=== PATIENT | female | born 1960 | race Caucasian/White ===

== ENCOUNTER 2016-12-01 17:21 | Emergency (ER) | payer OTHER ==
[~2016-12-01] VITALS: Ht 157.5 cm; Wt 57.6 kg
[2016-12-01] MEDS ORDERED: CEPHALEXIN500 MG ORAL (18:26)
--- NOTE | 2016-12-01 18:26 | Emergency Room Report ---
History of Present Illness General Chief Complaint: Laceration Source: Patient Present Illness HPI 56-year-old female presents to the emergency department complaining of laceration to the left third finger times one hour. Patient states that she was cutting sweet potatoes at home and actually cut her finger. Patient denies taking blood thinning medications, she reports she is up-to-date with tetanus vaccination. Patient states bleeding has subsided at this time. Denies numbness tingling or loss of sensation or gross motor movements of the extremities, incontinence of bowel or bladder. Denies CP, Palpitations, LOC, AMS , dizziness, Changes in Vision, Sensation, paresthesias, or a sudden severe headache. Allergies: Coded Allergies: SULFA (SULFONAMIDE ANTIBIOTICS) (Verified Allergy, Intermediate, Hives, 12/01/16) Patient History Past Medical History: see triage record Past Surgical History: none Pertinent Family History: none Now: No Immunizations: UTD Reviewed Nursing Documentation: PMH: Agreed, PSxH: Agreed Nursing Documentation-PMH Past Medical History: No Stated History Review of Systems All Other Systems: negative except mentioned in HPI Physical Exam Vital Signs Date Time Temp Pulse Resp B/P Pulse Ox O2 Delivery O2 Flow Rate FiO2 12/01/16 17:31 97.9 74 18 166/80 98 Room Air Sp02 EP Interpretation: reviewed, normal General Appearance: no apparent distress, alert, GCS 15, non-toxic Head: normocephalic, atraumatic Eyes: bilateral eye PERRL, bilateral eye normal inspection ENT: hearing grossly normal, normal pharynx, no angioedema, normal voice Neck: full range of motion, supple/symm/no masses Respiratory: lungs clear, normal breath sounds, speaking full sentences Cardiovascular #1: regular rate, rhythm, no edema Musculoskeletal: back normal, gait/station normal, normal range of motion, non- tender Neurologic: alert, oriented x3, responsive, motor strength/tone normal, sensory intact, speech normal Psychiatric: judgement/insight normal, memory normal, mood/affect normal Skin: normal color, no rash, warm/dry, well hydrated, laceration - 0.6 cm superficial flap laceration to the medial left 3rd finger. no obvious fb, skin is still mostly intact. no bleeding at this time. Lymphatic: no adenopathy Procedures Laceration/Wound Repair Laceration/Wound Repair : Consent: Verbal Wound Location: upper extremity - left third digit Wound's Depth, Shape: superficial, flap Wound Length (cm): 0 Wound Explored: clean Irrigated w/ Saline (ccs): 200 Wound Repaired With: Dermabond Layer Closure?: No Sterile Dressing Applied?: Yes Splint Applied?: Yes Type of Splint Applied: finger splint Sling Applied?: No Patient Tolerated: Well Complications: None Medical Decision Making PA Attestation Dr. Torres is my supervising Physician whom patient management has been discussed with. Diagnostic Impression: Primary Impression: Laceration ER Course 56-year-old female presents to the emergency department complaining of laceration to the left third finger times one hour. Patient states that she was cutting sweet potatoes at home and actually cut her finger. Patient denies taking blood thinning medications, she reports she is up-to-date with tetanus vaccination. Patient states bleeding has subsided at this time. Denies numbness tingling or loss of sensation or gross motor movements of the extremities, incontinence of bowel or bladder. Denies CP, Palpitations, LOC, AMS , dizziness, Changes in Vision, Sensation, paresthesias, or a sudden severe headache. Ddx considered but are not limited to laceration, tendon injury, cellulitis, amputation Vital signs: are WNL, pt. is afebrile H&PE are most consistent with: superficial flap laceration of the medial left 3rd digit approx 0.6 cm in length ORDERS: none required at this time, the diagnosis is clinical ED INTERVENTIONS: - The wound was copiously irrigated with normal saline, and explored for foreign body for which no FB was found. - The wound was approximated and closed using derma-jain Discussed with patient: That we make every effort to approximate the laceration as best as we can so that scarring will be as cosmetically pleasing as possible with our limited cosmetic skill set in the Emergency dept. Regardless of our best efforts there will be scarring after laceration repair. The extent of scarring is unknown at this time. -Finger Splint applied by senior mechanical technician. Pt. remains neurovascularly intact. DISCHARGE: At this time pt. is stable for d/c to home. Will provide printed patient care instructions, and any necessary prescriptions. Care plan and follow up instructions have been discussed with the patient prior to discharge. Last Vital Signs Date Time Temp Pulse Resp B/P Pulse Ox O2 Delivery O2 Flow Rate FiO2 12/01/16 17:31 97.9 74 18 166/80 98 Room Air Disposition: HOME, SELF-CARE Condition: Stable Scripts Cephalexin* (KEFLEX*) 500 Mg Capsule 500 MG ORAL EVERY 12 HOURS for 7 Days, #14 CAP 0 Refills Prov: Anca Monroy 12/01/16 Referrals: NON PHYSICIAN (PCP) Departure Forms: Return to Work Return to Work Date: Dec 03, 2016 Work Restrictions: No Heavy Lifting Other Restrictions: light duty, limited use of left hand x 1 week. Return to Full Activity: Dec 10, 2016 Patient Instructions: Nonsutured Laceration Care Additional Instructions: Take medications as directed. Follow up with a Primary Care Provider in 3-5 days, even if your symptoms have resolved. --Please review list of primary care clinics, if you do not already have a primary care provider Return sooner to ED if new symptoms occur, or current symptoms become worse. - Please note that this Emergency Department Report was dictated using Endoventionbilingual administrative assistant technology software, occasionally this can lead to erroneous entry secondary to interpretation by the dictation equipment. Anca Monroy Dec 01, 2016 18:26
[2016-12-01 18:44] VITALS: BP 150/72
== END 2016-12-01 18:46 | disposition home or self-care (01) ==
LOC: EMR 18:15
DX: S61.213A Laceration without foreign body of left middle finger without damage to nail, initial encounter (principal); W26.0XXA Contact with knife, initial encounter; Y92.019 Unspecified place in single-family (private) house as the place of occurrence of the external cause; Z88.2 Allergy status to sulfonamides

== ENCOUNTER 2017-02-10 16:54 | Emergency (ER) | payer OTHER ==
[~2017-02-10] VITALS: Ht 157.5 cm; Wt 57.6 kg
[~2017-02-10 16:54] MED LIST: CEPHALEXIN500 MG ORAL
[2017-02-10] MEDS: Methocarbamol 750mg tab ORAL ONE ×2 (17:18→17:20)
[2017-02-10] MEDS ORDERED: IBUPROFEN600 MG ORAL (18:22)
[2017-02-10] MEDS ORDERED: ROBAXIN-750750 MG PO (18:22)
[2017-02-10 18:30] VITALS: BP 134/88
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
--- NOTE | 2017-02-11 09:38 | Diagnostic Imaging Report ---
Indication: PAIN Comparison: none Findings: 3 views of the right knee show no acute fractures or dislocations. Bony mineralization is normal. No bony destructive lesions are identified. There is no suprapatellar effusion. Soft tissues are unremarkable. Impression: Negative right knee series
--- NOTE | 2017-02-11 09:41 | Diagnostic Imaging Report ---
Indication: PAIN Comparison: None Findings: AP, lateral and coned down views of the lumbar spine shows normal alignment. There are no acute fractures or subluxations. Intervertebral disc spaces are intact. There is mild disc space narrowing noted at L5-S1 consistent with mild degenerative changes. Bony mineralization is normal. Impression: No acute fractures or subluxations. Mild degenerative disc disease at L5-S1 Mild aortic calcifications
== END 2017-02-10 18:30 | disposition home or self-care (01) ==
LOC: EMR 18:05
DX: S39.012A Strain of muscle, fascia and tendon of lower back, initial encounter (principal); V43.52XA Car driver injured in collision with other type car in traffic accident, initial encounter; Y92.410 Unspecified street and highway as the place of occurrence of the external cause; M25.561 Pain in right knee; Z88.2 Allergy status to sulfonamides; M51.37 Other intervertebral disc degeneration, lumbosacral region
CPT/HCPCS: 72020; 99284

== ENCOUNTER 2017-12-05 08:27 | Inpatient (IN) | payer OTHER ==
[~2017-12-05] VITALS: Ht 158.8 cm; Wt 58.5 kg
[~2017-12-05 08:27] MED LIST changes: +IBUPROFEN600 MG ORAL; +ROBAXIN-750750 MG PO
[2017-12-05] MEDS ORDERED: NKM (08:39)
[2017-12-05 09:00] VITALS: BP 130/67
[2017-12-05 09:02] LABS: BASOPHILS % (AUTO) 1.4 % (0.0-2.0); HEMOGLOBIN 14.4 G/DL (12.0-16.0); LYMPHOCYTES % (AUTO) 33.2 % (20.0-45.0); MEAN CORPUSCULAR VOLUME 90 FL (80-99); MONOCYTES % (AUTO) 11.1 % (1.0-10.0); NEUTROPHILS % (AUTO) 53.2 % (45.0-75.0); PLATELET COUNT 338 K/UL (150-450); RED BLOOD COUNT 4.78 M/UL (4.20-5.40)
--- NOTE | 2017-12-05 09:06 | Emergency Room Report ---
History of Present Illness General Chief Complaint: Chest Pain Source: Patient Present Illness HPI This patient states that about 1:30 this morning she woke up with chest pain. She states that the sensation feels like she swallowed a hard candy and it stuck. She states that in the middle of her chest. She states that she thought possibly was indigestion so she took 2 Tums. She states that the symptoms continued so she took 2 baby aspirin as a precaution. She states that the symptoms continue. She does not have any cardiac history. She denies history of tobacco, alcohol or drug use. She does not have a history of asthma or other lung conditions. She does have a history of acid reflux and had been on PPI medications prior to the past few months. She underwent an endoscopy and had a normal endoscopy so she was removed from being on PPI medications. She denies abdominal pain. She denies nausea or vomiting. She denies fever or chills. She denies cough or congestion. She does admit that dinner last night was 2 [employer] and a boba tea. She has no other complaints. Allergies: Coded Allergies: SULFA (SULFONAMIDE ANTIBIOTICS) (Verified Allergy, Intermediate, Hives, 12/01/16) Patient History Past Medical History: see triage record, GERD, renal disease - Renal stenosis with angioplasty. Social History: Denies: smoking, alcohol use, drug use Last Menstrual Period: menopause Reviewed Nursing Documentation: PMH: Agreed; PSxH: Agreed Review of Systems All Other Systems: negative except mentioned in HPI Physical Exam Vital Signs Date Time Temp Pulse Resp B/P (MAP) Pulse Ox O2 Delivery O2 Flow Rate FiO2 12/05/17 08:30 98.1 82 18 148/83 100 Room Air 98.1 Sp02 EP Interpretation: reviewed, normal General Appearance: no apparent distress, alert, GCS 15, non-toxic Head: normocephalic, atraumatic Eyes: bilateral eye normal inspection, bilateral eye PERRL ENT: hearing grossly normal, normal pharynx, no angioedema, normal voice Neck: full range of motion, supple/symm/no masses Respiratory: chest non-tender, lungs clear, normal breath sounds, no respiratory distress, no retraction, no accessory muscle use, speaking full sentences Cardiovascular #1: regular rate, rhythm, no edema Gastrointestinal: normal bowel sounds, non tender, soft, non-distended, no guarding, no rebound Rectal: deferred Musculoskeletal: back normal, gait/station normal, normal range of motion, non- tender Neurologic: alert, oriented x3, responsive, motor strength/tone normal, sensory intact, speech normal Psychiatric: judgement/insight normal, memory normal, mood/affect normal, no suicidal/homicidal ideation Skin: normal color, no rash, warm/dry, well hydrated Medical Decision Making Diagnostic Impression: Primary Impression: Chest pain ER Course This patient presented with chest pain. She is low risk, however, she had no relief with treatment for acid reflux and esophagitis here in the emergency department. She continued to have pain. She does have a history of renal artery stenosis an aneurysm, so I felt that I could not discharges patient home without further workup as an inpatient. This would include evaluation for acute coronary syndrome to include unstable angina and further evaluation of the patient's aorta. I will order a CTA of this patient's chest. This will be pending at the time of this dictation. If there is any abnormality an addendum will be added to this chart. The patient will be admitted for further evaluation and monitoring of her persistent chest pain. Laboratory Tests Test 12/05/17 08:49 12/05/17 09:40 White Blood Count 7.0 K/UL (4.8-10.8) Red Blood Count 4.78 M/UL (4.20-5.40) Hemoglobin 14.4 G/DL (12.0-16.0) Hematocrit 43.0 % (37.0-47.0) Mean Corpuscular Volume 90 FL (80-99) Mean Corpuscular Hemoglobin 30.1 PG (27.0-31.0) Mean Corpuscular Hemoglobin Concent 33.4 G/DL (32.0-36.0) Red Cell Distribution Width 11.0 % (11.6-14.8) L Platelet Count 338 K/UL (150-450) Mean Platelet Volume 7.2 FL (6.5-10.1) Neutrophils (%) (Auto) 53.2 % (45.0-75.0) Lymphocytes (%) (Auto) 33.2 % (20.0-45.0) Monocytes (%) (Auto) 11.1 % (1.0-10.0) H Eosinophils (%) (Auto) 1.0 % (0.0-3.0) Basophils (%) (Auto) 1.4 % (0.0-2.0) Sodium Level 137 MMOL/L (136-145) Potassium Level 3.7 MMOL/L (3.5-5.1) Chloride Level 103 MMOL/L (98-107) Carbon Dioxide Level 27 MMOL/L (21-32) Anion Gap 8 mmol/L (5-15) Blood Urea Nitrogen 13 mg/dL (7-18) Creatinine 0.8 MG/DL (0.55-1.30) Estimate Glomerular Filtration Rate > 60 mL/min (>60) Glucose Level 96 MG/DL (74-106) Calcium Level 10.1 MG/DL (8.5-10.1) Total Bilirubin 0.4 MG/DL (0.2-1.0) Aspartate Amino Transferase (AST) 14 U/L (15-37) L Alanine Aminotransferase (ALT) 22 U/L (12-78) Alkaline Phosphatase 65 U/L (46-116) Total Creatine Kinase 86 U/L (26-308) Creatine Kinase MB 0.7 NG/ML (0.0-3.6) Creatine Kinase MB Relative Index 0.8 Troponin I 0.000 ng/mL (0.000-0.056) Total Protein 8.4 G/DL (6.4-8.2) H Albumin 4.4 G/DL (3.4-5.0) Globulin 4.0 g/dL Albumin/Globulin Ratio 1.1 (1.0-2.7) Urine Color Pale yellow Urine Appearance Clear Urine pH 8 (4.5-8.0) Urine Specific [place] 1.010 (1.005-1.035) Urine Protein Negative (NEGATIVE) Urine Glucose (UA) Negative (NEGATIVE) Urine Ketones Negative (NEGATIVE) Urine Occult Blood Negative (NEGATIVE) Urine Nitrite Negative (NEGATIVE) Urine Bilirubin Negative (NEGATIVE) Urine Urobilinogen Normal MG/DL (NORMAL) Urine Leukocyte Esterase 1+ (NEGATIVE) H Urine RBC 0-2 /HPF (0 - 2) Urine WBC 2-4 /HPF (0 - 2) Urine Squamous Epithelial Cells Occasional /LPF Urine Bacteria Occasional /HPF (NONE) EKG Diagnostic Results Rate: normal Rhythm: NSR ST Segments: no acute changes Rhythm Strip Diag. Results EP Interpretation: yes Rate: 70's Rhythm: NSR, no PVC's, no ectopy Chest X-Ray Diagnostic Results Chest X-Ray Diagnostic Results : Chest X-Ray Ordered: Yes # of Views/Limited/Complete: 1 View Indication: Chest Pain EP Interpretation: Yes Interpretation: no consolidation, no effusion, no pneumothorax, no acute cardiopulmonary disease Impression: No acute disease Last Vital Signs Date Time Temp Pulse Resp B/P (MAP) Pulse Ox O2 Delivery O2 Flow Rate FiO2 12/05/17 08:52 Room Air 12/05/17 08:30 98.1 82 18 148/83 100 98.1 Disposition: ADMITTED INPATIENT Condition: Stable Tisha Ibrahim DO Dec 05, 2017 09:06
[2017-12-05] MEDS ORDERED: Lidocaine 2% Visc 15ml soln ORAL ONE (09:15)
[2017-12-05 09:17] LABS: ANION GAP 8 mmol/L (5-15); BLOOD UREA NITROGEN 13 mg/dL (7-18); CALCIUM 10.1 MG/DL (8.5-10.1); CARBON DIOXIDE 27 MMOL/L (21-32); CHLORIDE 103 MMOL/L (98-107); CREATININE 0.8 MG/DL (0.55-1.30); POTASSIUM 3.7 MMOL/L (3.5-5.1); SODIUM 137 MMOL/L (136-145)
[2017-12-05 09:54] LABS: ALANINE AMINOTRANSFERASE 22 U/L (12-78); ALBUMIN 4.4 G/DL (3.4-5.0); ALBUMIN/GLOBULIN RATIO 1.1 (1.0-2.7); ALKALINE PHOSPHATASE 65 U/L (46-116); ASPARTATE AMINO TRANSFERASE 14 U/L (15-37); BILIRUBIN,TOTAL 0.4 MG/DL (0.2-1.0); CKMB 0.7 NG/ML (0.0-3.6); CREATINE KINASE 86 U/L (26-308)
[2017-12-05 10:04] LABS: APPEARANCE,URINE CLEAR; BILIRUBIN, URINE NEGATIVE (NEGATIVE); COLOR,URINE PALE YELLOW; GLUCOSE, URINE (UA) NEGATIVE (NEGATIVE); KETONES,URINE NEGATIVE (NEGATIVE); LEUKOCYTE ESTERASE ,URINE 1+ (NEGATIVE); NITRITE,URINE NEGATIVE (NEGATIVE); PH,URINE 8 (4.5-8.0); PROTEIN,URINE NEGATIVE (NEGATIVE); UROBILINOGEN,URINE NORMAL (NORMAL)
[2017-12-05] MEDS ORDERED: Isovue-370 150ml vial INJ PRN (10:45)
[2017-12-05 11:00] VITALS: BP 123/98
--- NOTE | 2017-12-05 11:51 | Diagnostic Imaging Report ---
Indication: Chest pain Technique: XRAY Chest 1v Comparison: None Findings: Heart size and mediastinal contours are within normal limits for AP technique. There are mild atherosclerotic calcifications in the aortic arch. There is no focal airspace consolidation, pleural effusion or pneumothorax. A metallic density structure is visualized in the mid abdomen, likely external to the patient. No acute osseous abnormality identified. Impression: No radiographic evidence of acute cardiopulmonary disease.
--- NOTE | 2017-12-05 13:14 | Diagnostic Imaging Report ---
Indication: Chest pain Technique: CT angiogram the chest performed utilizing automated exposure control with intravenous contrast. Axial, sagittal and coronal reconstructions were obtained. 3-D volumetric reconstructions were also performed. CT dose: Total DLP 964.31 mGycm; CTDI vol 23.4 mGy Comparison: None Findings: Thoracic aorta is normal in caliber, without evidence of aneurysm or dissection. No significant atherosclerotic disease identified there is variant branching anatomy of the aortic arch with an aberrant right subclavian artery. The visualized portions of the bilateral subclavian and common carotid arteries are patent and normal in caliber. There is left vertebral dominance. The vertebral arteries are patent. The visualized portions of abdominal aorta are normal in caliber with mild atherosclerotic disease. The celiac and superior mesenteric arteries are patent, normal in caliber and without evidence of significant stenosis. Visualized portions of the proximal inferior mesenteric artery are patent. Bilateral renal arteries are patent and without significant stenosis or occlusion. No accessory renal arteries identified. There is a aneurysm of the right renal artery located in the renal hilum that measures approximately 1.9 x 1.2 cm (series 6 image #[id number]). No evidence to suggest aneurysm rupture. The main pulmonary artery is normal in caliber. There is no saddle, large main or large segmental embolism. There is dependent atelectasis in the posterior portions of the lungs bilaterally. There is no focal airspace consolidation suggest pneumonia. No pleural effusion or pneumothorax. There is slight asymmetry of the breast tissue with some coarse calcifications in the right breast. Correlate with findings of most recent mammogram recommended. If none performed within a year and recommend routine screening mammogram. Heart size within normal limits. No pericardial effusion. Thyroid is unremarkable. No pathologically enlarged hilar or mediastinal lymph nodes. There are small accessory splenules in the splenic hilum. Liver, spleen, pancreas and bilateral adrenal glands grossly unremarkable. Imaged portions of the bilateral kidneys without evidence of stone or hydronephrosis. No free intraperitoneal air or abnormal bowel dilatation appreciated. No acute osseous abnormality identified. IMPRESSION: * No thoracic aortic aneurysm or dissection. 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 Correlation with prior exam recommended to assess for interval change in size. * Slight asymmetry of the breast tissue with some coarse calcifications in the right breast. Correlation with findings of most recent mammogram recommended. If none performed within a year and recommend routine screening mammogram. [place] [facility] [place] [employer] and the scans are performed using protocols designed to limit radiation exposure to as low as reasonably achievable to attain images of sufficient resolution adequate for diagnostic evaluation.
[2017-12-05 15:48] VITALS: BP 143/68
--- NOTE | 2017-12-05 16:34 | Consultation ---
History of Present Illness General Date patient seen: Dec 05, 2017 Time patient seen: 16:27 Chief Complaint: Chest Pain Present Illness HPI 1 day of precordial chest pain, squeezing chart sensation, no burning or indigestion, no N/V/F/C. No hx of Mi/PE/DVT/CVA/Arrhythmias. No chest pressure on palpitation, no rubs, no SOB, no fevers. Unrelated to exercise. Thoracic aorta is normal in caliber, without evidence of aneurysm or dissection. No significant atherosclerotic disease identified there is variant branching anatomy of the aortic arch with an aberrant right subclavian artery. No thoracic aortic aneurysm or dissection. Variant anatomy with aberrant right subclavian artery, which exerts mild mass effect on portions of the esophagus. Chest x ray No radiographic evidence of acute cardiopulmonary disease. Troponin negative, EKG normal. Allergies: Coded Allergies: SULFA (SULFONAMIDE ANTIBIOTICS) (Verified Allergy, Intermediate, Hives, 12/01/16) Medication History Scheduled Cephalexin* (Keflex*), 500 MG ORAL EVERY 12 HOURS Methocarbamol* (Robaxin-750*), 750 MG PO TID No Known Medications* (NKM - No Known Medications*), 0 ., (Reported) Scheduled PRN Ibuprofen* (Motrin*), 600 MG ORAL Q8H PRN for For Pain Patient History Healthcare decision maker Resuscitation status Full Code Advanced Directive on File Review of Systems Constitutional: Reports: no symptoms Eye: Reports: no symptoms ENT: Reports: no symptoms Respiratory: Reports: no symptoms Cardiovascular: Reports: chest pain Gastrointestinal: Reports: no symptoms Genitourinary: Reports: no symptoms Musculoskeletal: Reports: no symptoms Skin: Reports: no symptoms Psychiatric: Reports: no symptoms Neurological: Reports: no symptoms Endocrine: Reports: no symptoms Hematologic/Lymphatic: Reports: no symptoms Physical Exam General Appearance: no apparent distress, alert Lines, tubes and drains: peripheral HEENT: normocephalic, atraumatic Neck: non-tender, normal alignment Respiratory/Chest: chest wall non-tender, lungs clear Cardiovascular/Chest: normal peripheral pulses, normal rate, regular rhythm Abdomen: normal bowel sounds, non tender Extremities: normal range of motion, non-tender Skin Exam: normal pigmentation 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, no motor/sensory deficits Last 24 Hour Vital Signs Date Time Temp Pulse Resp B/P (MAP) Pulse Ox O2 Delivery O2 Flow Rate FiO2 12/05/17 15:48 97.7 65 18 143/68 (93) 99 97.7 12/05/17 14:20 Room Air 12/05/17 13:10 98.1 76 17 100/86 100 Room Air 98.1 12/05/17 11:00 98.1 83 17 123/98 100 Room Air 98.1 12/05/17 09:00 74 17 130/67 100 Room Air 12/05/17 08:52 Room Air 12/05/17 08:30 98.1 82 18 148/83 100 Room Air 98.1 Laboratory Tests Test 12/05/17 08:49 12/05/17 09:40 White Blood Count 7.0 K/UL (4.8-10.8) Red Blood Count 4.78 M/UL (4.20-5.40) Hemoglobin 14.4 G/DL (12.0-16.0) Hematocrit 43.0 % (37.0-47.0) Mean Corpuscular Volume 90 FL (80-99) Mean Corpuscular Hemoglobin 30.1 PG (27.0-31.0) Mean Corpuscular Hemoglobin Concent 33.4 G/DL (32.0-36.0) Red Cell Distribution Width 11.0 % (11.6-14.8) L Platelet Count 338 K/UL (150-450) Mean Platelet Volume 7.2 FL (6.5-10.1) Neutrophils (%) (Auto) 53.2 % (45.0-75.0) Lymphocytes (%) (Auto) 33.2 % (20.0-45.0) Monocytes (%) (Auto) 11.1 % (1.0-10.0) H Eosinophils (%) (Auto) 1.0 % (0.0-3.0) Basophils (%) (Auto) 1.4 % (0.0-2.0) Sodium Level 137 MMOL/L (136-145) Potassium Level 3.7 MMOL/L (3.5-5.1) Chloride Level 103 MMOL/L (98-107) Carbon Dioxide Level 27 MMOL/L (21-32) Anion Gap 8 mmol/L (5-15) Blood Urea Nitrogen 13 mg/dL (7-18) Creatinine 0.8 MG/DL (0.55-1.30) Estimat Glomerular Filtration Rate > 60 mL/min (>60) Glucose Level 96 MG/DL (74-106) Calcium Level 10.1 MG/DL (8.5-10.1) Total Bilirubin 0.4 MG/DL (0.2-1.0) Aspartate Amino Transf (AST/SGOT) 14 U/L (15-37) L Alanine Aminotransferase (ALT/SGPT) 22 U/L (12-78) Alkaline Phosphatase 65 U/L (46-116) Total Creatine Kinase 86 U/L (26-308) Creatine Kinase MB 0.7 NG/ML (0.0-3.6) Creatine Kinase MB Relative Index 0.8 Troponin I 0.000 ng/mL (0.000-0.056) Total Protein 8.4 G/DL (6.4-8.2) H Albumin 4.4 G/DL (3.4-5.0) Globulin 4.0 g/dL Albumin/Globulin Ratio 1.1 (1.0-2.7) Urine Color Pale yellow Urine Appearance Clear Urine pH 8 (4.5-8.0) Urine Specific [place] 1.010 (1.005-1.035) Urine Protein Negative (NEGATIVE) Urine Glucose (UA) Negative (NEGATIVE) Urine Ketones Negative (NEGATIVE) Urine Occult Blood Negative (NEGATIVE) Urine Nitrite Negative (NEGATIVE) Urine Bilirubin Negative (NEGATIVE) Urine Urobilinogen Normal MG/DL (NORMAL) Urine Leukocyte Esterase 1+ (NEGATIVE) H Urine RBC 0-2 /HPF (0 - 2) Urine WBC 2-4 /HPF (0 - 2) Urine Squamous Epithelial Cells Occasional /LPF Urine Bacteria Occasional /HPF (NONE) Height (Feet): 5 Height (Inches): 2.50 Weight (Pounds): 129 Medications Current Medications Medications (Trade) Dose Ordered Sig/Roberto Route PRN Reason Start Time Stop Time Status Last Admin Dose Admin Acetaminophen (Tylenol) 650 mg Q4H PRN ORAL Moderate Pain (Pain Scale 4-6) 12/05/17 15:30 01/04/18 15:29 Famotidine (Pepcid) 20 mg DAILY ORAL 12/06/17 09:00 01/05/18 08:59 Iopamidol (Isovue-370 150ml) 150 ml NOW PRN INJ Radiology Procedure 12/05/17 10:45 12/07/17 10:43 Assessment/Plan Status: stable Assessment/Plan Assessment: Atypical chest pain Variant anatomy with aberrant right subclavian artery, which exerts mild mass effect on portions of the esophagus Plan: Serial EKG/troponin Echocardiogram GI consult for endoscopy PPI Maalox Thoracic surgery consult for aberrant subclavian artery compression Defer stress test or angiogram as CT did not show any atherosclerosis and patient has no risk factors and low pre test for ischemia. David York M.D. Dec 05, 2017 16:34
[2017-12-05 20:00] VITALS: BP 126/65
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
[2017-12-05] MEDS ORDERED: Barium EZ HD MC PRN (21:30)
[2017-12-05] MEDS ORDERED: Varibar Thin Liquid powder 148gm MC PRN (21:30)
[2017-12-05] MEDS ORDERED: Barium EZ Gas II granules MC PRN (21:30)
[2017-12-06] VITALS: BP 118/68
[2017-12-06 04:00] VITALS: BP 115/64
[2017-12-06 06:43] LABS: BASOPHILS % (AUTO) 1.5 % (0.0-2.0); HEMATOCRIT 39.3 % (37.0-47.0); HEMOGLOBIN 13.2 G/DL (12.0-16.0); LYMPHOCYTES % (AUTO) 28.6 % (20.0-45.0); MEAN CORPUSCULAR VOLUME 91 FL (80-99); MONOCYTES % (AUTO) 10.7 % (1.0-10.0); NEUTROPHILS % (AUTO) 58.2 % (45.0-75.0); PLATELET COUNT 293 K/UL (150-450); RED CELL DISTRIBUTION WIDTH 11.2 % (11.6-14.8); WHITE BLOOD COUNT 5.8 K/UL (4.8-10.8)
[2017-12-06 07:00] LABS: ANION GAP 7 mmol/L (5-15); BLOOD UREA NITROGEN 14 mg/dL (7-18); CALCIUM 8.9 MG/DL (8.5-10.1); CARBON DIOXIDE 29 MMOL/L (21-32); CHLORIDE 104 MMOL/L (98-107); CREATININE 0.8 MG/DL (0.55-1.30); POTASSIUM 4.1 MMOL/L (3.5-5.1); SODIUM 140 MMOL/L (136-145)
[2017-12-06 08:00] VITALS: BP 107/66
--- NOTE | 2017-12-06 10:41 | Cardiology Progress Note ---
Assessment/Plan Status: stable Assessment/Plan Assessment: Atypical chest pain Variant anatomy with aberrant right subclavian artery, which exerts mild mass effect on portions of the esophagus Plan: Serial EKG/troponin Stress Echocardiogram GI consult for endoscopy PPI Maalox Thoracic surgery consult for aberrant subclavian artery compression Of note patients CT scan did not show coronary calcification, pre test probability of ischemia causing symptoms is low. Subjective Cardiovascular: Reports: chest pain Respiratory: Reports: no symptoms Gastrointestinal/Abdominal: Reports: no symptoms Genitourinary: Reports: no symptoms Subjective No acute events, vitals stable. For esophagram and exercise echo today. Objective Last 24 Hour Vital Signs Date Time Temp Pulse Resp B/P (MAP) Pulse Ox O2 Delivery O2 Flow Rate FiO2 12/06/17 09:00 Room Air 12/06/17 08:00 71 12/06/17 08:00 97.7 73 18 107/66 (80) 100 97.7 12/06/17 04:00 85 12/06/17 04:00 97.7 56 20 115/64 (81) 100 97.7 12/06/17 00:00 98.0 72 20 118/68 (85) 100 98.0 12/06/17 00:00 67 12/05/17 21:00 Room Air 12/05/17 20:00 86 12/05/17 20:00 97.4 69 20 126/65 (85) 100 97.4 12/05/17 16:00 70 12/05/17 15:48 97.7 65 18 143/68 (93) 99 97.7 12/05/17 14:20 Room Air 12/05/17 13:10 98.1 76 17 100/86 100 Room Air 98.1 12/05/17 11:00 98.1 83 17 123/98 100 Room Air 98.1 General Appearance: no apparent distress, alert EENT: PERRL/EOMI, normal ENT inspection Neck: non-tender, normal alignment Rhythm: NSR Cardiovascular: normal peripheral pulses, normal rate, regular rhythm Respiratory/Chest: chest wall non-tender, lungs clear, normal breath sounds Abdomen: normal bowel sounds, non tender, soft, no organomegaly Extremities: normal range of motion, non-tender Neurologic: systems planner II-XII grossly normal Intake and Output 12/05/17 12/06/17 19:00 07:00 Intake Total 1120 ml Output Total 80 ml Balance 1040 ml Intake Oral 120 ml IV Total 1000 ml Output Urine Total 80 ml # Voids 2 1 Laboratory Tests Test 12/06/17 06:10 White Blood Count 5.8 K/UL (4.8-10.8) Red Blood Count 4.30 M/UL (4.20-5.40) Hemoglobin 13.2 G/DL (12.0-16.0) Hematocrit 39.3 % (37.0-47.0) Mean Corpuscular Volume 91 FL (80-99) Mean Corpuscular Hemoglobin 30.8 PG (27.0-31.0) Mean Corpuscular Hemoglobin Concent 33.7 G/DL (32.0-36.0) Red Cell Distribution Width 11.2 % (11.6-14.8) L Platelet Count 293 K/UL (150-450) Mean Platelet Volume 7.3 FL (6.5-10.1) Neutrophils (%) (Auto) 58.2 % (45.0-75.0) Lymphocytes (%) (Auto) 28.6 % (20.0-45.0) Monocytes (%) (Auto) 10.7 % (1.0-10.0) H Eosinophils (%) (Auto) 1.0 % (0.0-3.0) Basophils (%) (Auto) 1.5 % (0.0-2.0) Sodium Level 140 MMOL/L (136-145) Potassium Level 4.1 MMOL/L (3.5-5.1) Chloride Level 104 MMOL/L (98-107) Carbon Dioxide Level 29 MMOL/L (21-32) Anion Gap 7 mmol/L (5-15) Blood Urea Nitrogen 14 mg/dL (7-18) Creatinine 0.8 MG/DL (0.55-1.30) Estimat Glomerular Filtration Rate > 60 mL/min (>60) Glucose Level 95 MG/DL (74-106) Calcium Level 8.9 MG/DL (8.5-10.1) Troponin I 0.000 ng/mL (0.000-0.056) David York M.D. Dec 06, 2017 10:41
[2017-12-06 12:00] VITALS: BP 112/69
--- NOTE | 2017-12-06 14:58 | Cardiology Report ---
APPROVED REPORT EXAM: Two-dimensional and M-mode echocardiogram with Doppler and color Doppler. INDICATION Chest Pain M-Mode DIMENSIONS IVSd1.1 (0.7-1.1cm)Left Atrium (MM)2.9 (1.6-4.0cm) LVDd3.2 (3.5-5.6cm)Aortic Root3.1 (2.0-3.7cm) PWd1.4 (0.7-1.1cm)Aortic Cusp Exc.1.6 (1.5-2.0cm) LVDs1.7 (2.5-4.0cm) PWs1.3 cm Normal left ventricular chamber size, systolic function and wall motion. Left ventricular ejection fraction estimated to be 60 %. Borderline left ventricular hypertrophy. No evidence of pericardial effusion. All other cardiac chamber sizes are within normal limits. Mild focal aortic valve sclerosis with adequate cusp excursion. Mildly thickened mitral valve leaflets with normal excursion. Mild mitral annulus and aortic root calcification. Pulmonic valve not well visualized. Normal tricuspid valve structure. IVC at normal size with physiologic collapse. A color flow and spectral Doppler study was performed and revealed: Trace mitral regurgitation. Mitral diastolic velocities suggest mildly reduced left ventricular relaxation c/w mild LV diastolic dysfunction. Trace tricuspid regurgitation. Tricuspid systolic velocities suggests peak right ventricular systolic pressure of 17 mmHg. Pulmonic regurgitation present.
[2017-12-06 16:00] VITALS: BP 110/68
--- NOTE | 2017-12-06 16:07 | Cardiology Report ---
APPROVED REPORT EKG Measurement Heart [id number] Normal sinus rhythm Biatrial enlargement Cannot rule out Anterior infarct, age undetermined Abnormal ECG
--- NOTE | 2017-12-06 17:21 | General Surgery Progress Note ---
General Surgery-Progress Note Subjective Symptoms: improved, tolerating diet, passing flatus Additional Comments feels better. no pain. no n/v/f/c. tolerating diet. ambulatory. mild mid chest discomfort but improved. Objective Last 24 Hour Vital Signs Date Time Temp Pulse Resp B/P (MAP) Pulse Ox O2 Delivery O2 Flow Rate FiO2 12/06/17 12:00 98.1 65 20 112/69 (83) 100 98.1 12/06/17 12:00 65 12/06/17 09:00 Room Air 12/06/17 08:00 71 12/06/17 08:00 97.7 73 18 107/66 (80) 100 97.7 12/06/17 04:00 85 12/06/17 04:00 97.7 56 20 115/64 (81) 100 97.7 12/06/17 00:00 98.0 72 20 118/68 (85) 100 98.0 12/06/17 00:00 67 12/05/17 21:00 Room Air 12/05/17 20:00 86 12/05/17 20:00 97.4 69 20 126/65 (85) 100 97.4 I&O Intake and Output 12/05/17 12/06/17 19:00 07:00 Intake Total 1120 ml Output Total 80 ml Balance 1040 ml Intake Oral 120 ml IV Total 1000 ml Output Urine Total 80 ml # Voids 2 1 Drains: none Cardiovascular: RSR Respiratory: clear Abdomen: soft, flat, non-tender, present bowel sounds Extremities: no edema, no tenderness, no cyanosis Laboratory Tests Test 12/06/17 06:10 White Blood Count 5.8 K/UL (4.8-10.8) Red Blood Count 4.30 M/UL (4.20-5.40) Hemoglobin 13.2 G/DL (12.0-16.0) Hematocrit 39.3 % (37.0-47.0) Mean Corpuscular Volume 91 FL (80-99) Mean Corpuscular Hemoglobin 30.8 PG (27.0-31.0) Mean Corpuscular Hemoglobin Concent 33.7 G/DL (32.0-36.0) Red Cell Distribution Width 11.2 % (11.6-14.8) L Platelet Count 293 K/UL (150-450) Mean Platelet Volume 7.3 FL (6.5-10.1) Neutrophils (%) (Auto) 58.2 % (45.0-75.0) Lymphocytes (%) (Auto) 28.6 % (20.0-45.0) Monocytes (%) (Auto) 10.7 % (1.0-10.0) H Eosinophils (%) (Auto) 1.0 % (0.0-3.0) Basophils (%) (Auto) 1.5 % (0.0-2.0) Sodium Level 140 MMOL/L (136-145) Potassium Level 4.1 MMOL/L (3.5-5.1) Chloride Level 104 MMOL/L (98-107) Carbon Dioxide Level 29 MMOL/L (21-32) Anion Gap 7 mmol/L (5-15) Blood Urea Nitrogen 14 mg/dL (7-18) Creatinine 0.8 MG/DL (0.55-1.30) Estimat Glomerular Filtration Rate > 60 mL/min (>60) Glucose Level 95 MG/DL (74-106) Calcium Level 8.9 MG/DL (8.5-10.1) Troponin I 0.000 ng/mL (0.000-0.056) Plan Problems: (1) Aberrant subclavian artery Assessment & Plan: Right Subclavian artery aberrant with possible mild thoracic esophageal mass effect. Congenital abnormality with no prior symptoms. No history of dysphagia or similar symptoms. currently able to tolerate liquids and diet. likely incidental finding. Cardiac etiology of chest pain unlikely as well given atypical pain and normal labs / EKG. Cardiac stress test okay. ECHO okay -PENDING Esophagram to ensure no obstruction or mass effect by aberrant subclavian artery. If this is the first episode related to this and this is etiology will recommend dietary modification and outpatient thoracic [facility] evaluation [facility]. -will follow with recs -discussed findings, care, and plan with patient. thank you for this consultation (2) Chest pain Assessment & Plan: Trop negative. Atypical chest pain. Appreciate Cardiology input. Devon Rosales Dec 06, 2017 17:21
[2017-12-06 20:00] VITALS: BP 110/64
[2017-12-07] VITALS: BP 91/53
--- NOTE | 2017-12-07 01:45 | History and Physical Report ---
DATE OF ADMISSION: 12/05/2017 NOTE: "POOR AUDIO QUALITY" REASON FOR ADMISSION: The patient is admitted for chest pain, rule out acute coronary syndrome. HISTORY OF PRESENT ILLNESS: The patient reports chest pain for one day. No radiation. It does not radiate no radiation. No palpitation. She has history of GERD, GI cocktail that she took at the ER, to home, did not help at all, so that is why she came in to rule out acute coronary syndrome. The patient denies nausea, vomiting, or diarrhea. Denies chills. Denies orthopnea. PAST MEDICAL HISTORY: Significant for GERD. PAST SURGICAL HISTORY: x2, nose surgery. FAMILY HISTORY: Father of [place] at age 73. SOCIAL HISTORY: No history of smoking, alcohol, or illicit drugs. ALLERGIES: Sulfa. MEDICATIONS: She takes ibuprofen p.r.n. and something for heartburn p.r.n. like Mylanta and Tums, she said. REVIEW OF SYSTEMS: HEENT: Denies headaches. RESPIRATORY: Denies shortness of breath. Denies cough. CARDIOVASCULAR: Reports chest pain x1, no radiation. It was not relieved by any medications that she took and shortness of breath or diaphoresis. GASTROINTESTINAL: Denies nausea, vomiting, or diarrhea. Does have history of GERD. EXTREMITIES: Denies pain in lower extremities. CENTRAL NERVOUS SYSTEM: Denies any significant change in speech pattern. PHYSICAL EXAMINATION: VITAL SIGNS: Temperature is 97.7, pulse is 85, and blood pressure is 168/64. HEENT: PERRLA. NECK: Supple. No lymphadenopathy. CARDIOVASCULAR: Regular rate and rhythm. CHEST: Clear to auscultation. GASTROINTESTINAL: Soft, nontender, and nondistended. No organomegaly. EXTREMITIES: No edema. NEUROLOGIC: Reflexes are equal on both sides. Moves all four extremities. LABORATORY DATA: . Troponin is negative. WBC of 7, hemoglobin 14.4, and platelets . Sodium 137, potassium 3.7, chloride 103, BUN of 13, and creatinine 0.8. Troponin is zero. mild mass effect on portion of the esophagus, it was an incidental finding. It is most likely , which could also cause dyspnea Dr. Rosales. ASSESSMENT AND PLAN: Chest pain, rule out acute coronary syndrome. Abnormal finding on the CT scan. Dr. Rosales is looking after that. I have asked Dr. Ibrahim, Dr. Rosales, and Dr. Gamboa to see the patient. Glo Amaya M.D. DR: Ct JOB#: [id number] CC:
[2017-12-07 04:00] VITALS: BP 102/58
[2017-12-07 08:00] VITALS: BP 106/57
--- NOTE | 2017-12-07 11:01 | Cardiology Progress Note ---
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 For esophagram TTE normal function, stress test non ischemic. Objective Last 24 Hour Vital Signs Date Time Temp Pulse Resp B/P (MAP) Pulse Ox O2 Delivery O2 Flow Rate FiO2 12/07/17 08:00 70 12/07/17 08:00 98.1 69 17 106/57 (73) 100 98.1 12/07/17 08:00 Room Air 12/07/17 04:00 57 12/07/17 04:00 97.4 53 18 102/58 (73) 100 97.4 12/07/17 00:00 57 12/07/17 00:00 97.3 58 18 91/53 (66) 98 97.3 12/06/17 21:00 Room Air 12/06/17 20:00 97.5 71 18 110/64 (79) 97 97.5 12/06/17 20:00 70 12/06/17 16:00 70 12/06/17 16:00 97.7 74 18 110/68 (82) 96 97.7 12/06/17 12:00 98.1 65 20 112/69 (83) 100 98.1 12/06/17 12:00 65 General Appearance: no apparent distress, alert EENT: PERRL/EOMI, normal ENT inspection Neck: non-tender, normal alignment Rhythm: NSR Cardiovascular: normal peripheral pulses, normal rate, regular rhythm Respiratory/Chest: chest wall non-tender, lungs clear Abdomen: normal bowel sounds, non tender Extremities: normal range of motion, non-tender Neurologic: supervisor lump room II-XII grossly normal, no motor/sensory deficits Intake and Output 12/06/17 12/07/17 19:00 07:00 Intake Total 480 ml Balance 480 ml Intake Oral 480 ml # Voids 5 5 David York M.D. Dec 07, 2017 11:01
[2017-12-07 12:00] VITALS: BP 128/63
--- NOTE | 2017-12-07 12:21 | Diagnostic Imaging Report ---
Indication: Chest pain Technique: Patient ingested effervescent granules, oral thick and thin liquid barium, and rapid sequence spot images obtained under direct fluoroscopic supervision. Over and static images also obtained. Total fluoroscopy time 0.9 minutes. Total dose area product 122 dGycm2 Number of images: 157 Comparison: none Findings: Esophagus demonstrates essentially normal motility, with rapid transit of contrast. There is equivocal slight dysmotility on the delayed images later in swallowing. No strictures, filling defects, or ulcerations demonstrated. A single view of the stomach is unremarkable. No gastroesophageal reflux was observed fluoroscopically. Impression: Essentially unremarkable exam, with equivocal minimal dysmotility late in swallowing
--- NOTE | 2017-12-08 10:03 | Discharge Summary ---
Discharge Summary Discharge Summary _ DATE OF ADMISSION: 12/05/2017 DATE OF DISCHARGE: 12/07/2017 CONSULTANTS: Dr. David Rosales BRIEF HOSPITAL COURSE: Patient is a 57-year-old female, who presented to ED due to complaints of chest pain. Symptoms started at 1:30 in the morning, she woke up with chest pain which felt like she swallowed a hard candy and it got stuck. Pain was located at the middle of the chest. She took 2 Tums without relief of symptoms. Symptoms persisted, she took 2 baby aspirins. She denied history of tobacco use or alcohol use. She has history of asthma and acid reflux and had been on PPI medications for the past few months. She underwent an endoscopy and had a normal endoscopy and was taken off proton pump inhibitors. She denied any abdominal pain, denied nausea or vomiting. Denied fever or chills. Denied cough or congestion. On evaluation at ED, vital signs were stable. Blood work was unremarkable. Troponin was negative. Urinalysis negative. Chest x-ray with no evidence of acute cardiopulmonary disease. Chest CTA was negative for thoracic aortic aneurysm or dissection. She continued to have pain and had no relief with acid reflux treatment. She was then admitted for evaluation of ACS. She underwent cardiac evaluation. Serial troponins were monitored. Echocardiogram was done showed EF 60%. Troponins were negative. She underwent stress echocardiogram, stress test was not ischemic. She was seen by surgery. On CT scan there was a finding of an aberrant right subclavian artery with possible mild esophageal mass effect. There was no history of dysphagia or similar symptoms. Patient was able to tolerate liquids and diet. An esophagram was done, results were essentially unremarkable with equivocal minimal dysmotility late in the swallowing. Patient was tolerating diet well. There was mild chest discomfort, however, improved. She was recommended dietary modification and to follow-up for an outpatient thoracic surgery evaluation. Patient was discharged home. FINAL DIAGNOSES: Atypical chest pain Aberrant right subclavian artery which exerts mild mass effect on the portions of the esophagus DISPOSITION: Patient was discharged home. DISCHARGE INSTRUCTIONS: Follow up with PCP in a week. I have been assigned to dictate discharge summary on this account, and I was not involved in the patient's management. Rachel Avila NP Dec 08, 2017 10:03
== END 2017-12-07 14:20 | disposition home or self-care (01) | DRG 313 ==
LOC: EMR 09:15 → 2E 11:00 → EDBEDREQ 11:35
DX: R07.89 Other chest pain (principal); Q27.8 Other specified congenital malformations of peripheral vascular system; K21.9 Gastro-esophageal reflux disease without esophagitis; Z88.2 Allergy status to sulfonamides
CPT/HCPCS: 36415; 71045; 71275; 74220; 80048; 80053; 81003; 82550; 82553; 84484; 85025; 93005; 93017; 93306; 93350